=== PATIENT | male | born 1950 | race Caucasian/White ===

== ENCOUNTER 2023-05-19 10:37 | Outpatient (OUT) | payer MEDICARE, SELFPAY ==
[2023-05-19 11:01] LABS: Basophils Absolute Auto 0.1 10^3/uL (0.0-0.1); Basophils Percent Auto 1.1 % (0.2-2.0); Eosinophils Absolute Auto 0.3 10^3/uL (0.0-0.7); Hematocrit 41.3 % (42.0-54.0); Hemoglobin 14.1 g/dL (14.0-18.0); Immature Granulocytes Abs Auto 0.04 10^3/uL (0.00-0.03); Immature Granulocytes Pct Auto 0.4 % (0.0-0.5); Lymphocytes Absolute Auto 1.8 10^3/uL (1.2-3.8); Lymphocytes Percent Auto 19.7 % (20.5-60.0); Mean Corpuscular HGB Conc 34.1 g/dL (29.9-35.2); Mean Corpuscular Hemoglobin 31.7 pg (25.9-34.0); Mean Corpuscular Volume 92.8 fL (80.0-94.0); Mean Platelet Volume 9.7 fL (9.5-13.5); Monocytes Absolute Auto 0.8 10^3/uL (0.3-0.8); Neutrophils Percent Auto 66.8 % (43.0-75.0); Platelet Count 232 10^3/uL (150-450); Red Blood Count 4.45 10^6/uL (4.70-6.10); Red Cell Distribution Width 12.3 % (11.0-15.0)
[2023-05-19 11:23] LABS: Estimated Average Glucose 134 mg/dL; Glycohemoglobin A1C 6.3 % (4.5-6.2)
[2023-05-19 11:27] LABS: Creatinine Urine Random 112.61 mg/dL (20.00-300.00); Microalbum Creatinine Ratio Ur 11.5 mg/g (0.0-29.9); Microalbumin Urine Random <1.3 mg/dL (<=30.0)
[2023-05-19 11:27] LABS: Alanine Aminotransferase 25 U/L (16-63); Albumin Level 3.8 g/dL (3.4-5.0); Alkaline Phosphatase 76 U/L (46-116); Anion Gap 17.1; Aspartate Amino Transferase 19 U/L (15-37); BUN Creatinine Ratio 15.1; Bilirubin Total 0.6 mg/dL (0.2-1.0); Calcium 8.7 mg/dL (8.5-10.1); Carbon Dioxide 23.1 mmol/L (21.0-32.0); Chloride 101 mmol/L (98-107); Cholesterol 138 mg/dL (<=200); Estimated GFR (African America >60 (>=60); Estimated GFR (Non-African Ame >60 (>=60); Globulin 3.8 g/dL; Glucose 133 mg/dL (74-106); HDL Cholesterol 46 mg/dL (40-60); LDL Cholesterol Calculated 62.4 mg/dL; Potassium 4.2 mmol/L (3.5-5.1); Sodium 137 mmol/L (136-145); Total Protein 7.6 g/dL (6.4-8.2); Triglycerides 148 mg/dL (<=150); VLDL CHOLESTEROL 29.6 mg/dL
[2023-05-19 11:38] LABS: Prostate Specific Antigen Scrn 1.01 ng/mL (<=4.00)
== END 2023-05-19 10:38 | disposition home or self-care (01) ==
LOC: LAB 10:37
PROVIDERS: PCP Family Medicine; Visit Provider Family Medicine
DX: E11.9 Type 2 diabetes mellitus without complications (principal); Z12.5 Encounter for screening for malignant neoplasm of prostate
CPT/HCPCS: 36415; 80053; 80061; 82043; 82570; 83036; 85025; G0103

== ENCOUNTER 2024-05-13 09:05 | Outpatient (OUT) | payer MEDICARE, SELFPAY ==
[2024-05-13 09:33] LABS: Basophils Absolute Auto 0.1 10^3/uL (0.0-0.1); Basophils Percent Auto 0.8 % (0.2-2.0); Eosinophils Absolute Auto 0.2 10^3/uL (0.0-0.7); Eosinophils Percent Auto 2.7 % (0.9-7.0); Hematocrit 41.5 % (42.0-54.0); Hemoglobin 14.3 g/dL (14.0-18.0); Immature Granulocytes Abs Auto 0.04 10^3/uL (0.00-0.03); Immature Granulocytes Pct Auto 0.5 % (0.0-0.5); Lymphocytes Absolute Auto 1.5 10^3/uL (1.2-3.8); Lymphocytes Percent Auto 17.5 % (20.5-60.0); Mean Corpuscular HGB Conc 34.5 g/dL (29.9-35.2); Mean Corpuscular Hemoglobin 31.8 pg (25.9-34.0); Mean Corpuscular Volume 92.4 fL (80.0-94.0); Mean Platelet Volume 9.1 fL (9.5-13.5); Monocytes Absolute Auto 0.8 10^3/uL (0.3-0.8); Monocytes Percent Auto 9.5 % (1.7-12.0); Platelet Count 240 10^3/uL (150-450); Red Blood Count 4.49 10^6/uL (4.70-6.10); Red Cell Distribution Width 12.1 % (11.0-15.0); White Blood Count 8.7 10^3/uL (4.0-11.0)
[2024-05-13 10:26] LABS: Alanine Aminotransferase 31 U/L (16-63); Albumin Globulin Ratio 1.1; Albumin Level 3.8 g/dL (3.4-5.0); Alkaline Phosphatase 71 U/L (46-116); Anion Gap 15.4; Aspartate Amino Transferase 17 U/L (15-37); Bilirubin Total 0.6 mg/dL (0.2-1.0); Calcium 8.6 mg/dL (8.5-10.1); Carbon Dioxide 26.9 mmol/L (21.0-32.0); Chloride 102 mmol/L (98-107); Chol HDL Ratio 3.2; Cholesterol 142 mg/dL (<=200); Estimated GFR (African America >60 (>=60 mL/min/1.73m^2); Estimated GFR (Non-African Ame 55 (>=60 mL/min/1.73m^2); Globulin 3.5 g/dL; Glucose 142 mg/dL (74-106); HDL Cholesterol 45 mg/dL (40-60); LDL Cholesterol Calculated 68.2 mg/dL; Potassium 4.3 mmol/L (3.5-5.1); Sodium 140 mmol/L (136-145); Total Protein 7.3 g/dL (6.4-8.2); Triglycerides 144 mg/dL (<=150); VLDL CHOLESTEROL 28.8 mg/dL
[2024-05-13 10:27] LABS: Creatinine Urine Random 75.28 mg/dL (20.00-300.00); Microalbumin Urine Random <1.3 mg/dL (<=30.0)
[2024-05-13 10:39] LABS: Prostate Specific Antigen Scrn 0.89 ng/mL (<=4.00)
[2024-05-13 11:12] LABS: Estimated Average Glucose 143 mg/dL; Glycohemoglobin A1C 6.6 % (4.5-6.2)
== END 2024-05-13 09:06 | disposition home or self-care (01) ==
LOC: LAB 09:06
PROVIDERS: PCP Family Medicine; Visit Provider Family Medicine
DX: E78.2 Mixed hyperlipidemia (principal); I10 Essential (primary) hypertension; E11.9 Type 2 diabetes mellitus without complications
CPT/HCPCS: 36415; 80053; 80061; 82043; 82570; 83036; 85025; G0103

== ENCOUNTER 2024-05-14 07:22 | Outpatient (OUT) | payer MEDICARE, SELFPAY ==
--- OUTSIDE RECORDS SUMMARY | 2024-05-14 07:26 | XMS_ITS | CCD ---
Author Organization [facility] Care Team Providers Care Instructor Apparel Manufacture Name Role Phone DR CHARAN VALDEZ Admitting Unavailable VALDEZ, DR CHARAN Kaur Attending Unavailable COURTNEY, DR CHARAN Kaur Primary Care Unavailable VALDEZ, DR CHARAN Kaur Consulting Unavailable Unavailable Primary Care Provider MOMO Vaz Attending Unavailable ED LEVY Referring Unavailable Medications Current Medications Medication Drug Class(es) Dates Sig (Normalized) Sig (Original) atorvastatin 10 mg oral tablet (1 source) HMG-CoA Reductase Inhibitor atorvastatin (Lipitor) 10 MG tablet TAKE 1 TABLET BY MOUTH EVERY DAY ONCE DAILY Active ketorolac tromethamine 5 mg/ml ophthalmic solution (1 source) Nonsteroidal Anti-inflammatory Drug, Cyclooxygenase Inhibitor Start: 04-17-2024 End: 05-17-2024 take 1 drop(s) into the eye(s) in the morning ketorolac (Acular) 0.5 % ophthalmic solution Indications: Age-related nuclear cataract of both eyes Administer 1 drop into affected eye(s) in the morning and 1 drop before bedtime. 5 mL 1 04/17/2024 05/17/2024 Active metFORMIN hydrochloride 1000 mg oral tablet (1 source) Biguanide take 1 tablet by mouth in the morning metFORMIN (Glucophage) 1000 MG tablet Take 1,000 mg by mouth in the morning and 1,000 mg in the evening. Take with meals. Active ofloxacin 3 mg/ml ophthalmic solution (1 source) Quinolone Antimicrobial Start: 04-17-2024 End: 04-18-2024 take 1 drop(s) into the eye(s) five times daily ofloxacin (Ocuflox) 0.3 % ophthalmic solution Indications: Age-related nuclear cataract of both eyes Administer 1 drop into the right eye 5 (five) times a day for 1 day Starting 1 day before surgery, continue after surgery as directed 5 mL 1 04/17/2024 04/18/2024 Active prednisoLONE acetate 10 mg/ml ophthalmic suspension (1 source) Corticosteroid Start: 04-17-2024 End: 05-01-2024 prednisoLONE acetate (Pred-Forte) 1 % ophthalmic suspension Indications: Age-related nuclear cataract of both eyes Administer 1 drop into both eyes in the morning and 1 drop at noon and 1 drop in the evening and 1 drop before bedtime. Do all this for 14 days. 5 mL 1 04/17/2024 05/01/2024 Active tamsulosin hydrochloride 0.4 mg oral capsule (1 source) alpha-Adrenergic Zeo Start: 02-13-2024 take 1 capsule by mouth once daily tamsulosin (Flomax) 0.4 MG 24 hr capsule Take 0.4 mg by mouth Daily 02/13/2024 Active Problems Problem Classification Problem Date Documented Da te Episodic/Chronic Cataract (2 sources) Bilateral age-related nuclear cataracts; Translations: [Age-related nuclear cataract, bilateral] Onset: 04-17-2024 04-17-2024 Chronic Diabetes mellitus without complication (1 source) Type 2 diabetes mellitus without complications; Translations: [TYPE 2 DM WITHOUT COMPLICATIONS] Onset: 05-21-2022 Chronic Disorders of lipid metabolism (4 sources) Mixed hyperlipidemia; Translations: [MIXED HYPERLIPIDEMIA] Onset: 05-16-2022 Chronic Essential hypertension (1 source) Essential (primary) hypertension; Translations: [ESSENTIAL PRIMARY HYPERTENSION] Onset: 05-21-2022 Chronic Other screening for suspected conditions (not mental disorders or infectious disease) (1 source) Encounter for screening for malignant neoplasm of prostate; Translations: [ENC SCREEN MALIG NEOPLASM PROSTATE] Onset: 05-21-2022 Episodic Results Test Name Value Interpretation Reference Range Facil ity US Eye+Orbit - bilateralon 1 06-17-2023 Diagnosis: Cataract both eyes (OU) Testing Indication: Performed for preop measurements in the determination of an intraocular lens (IOL) for both eyes (OU) Test Reliability: Good quality both eyes (OU) Interpretation: Good measurements for intraocular lens (IOL) calculation purposes. Calculation made for both eyes (OU). [facility] Drivrcar e Radiology Study observation (narrative) [facility] CBC AUTO DIFFon 05-16-2022 BASO # 0.1 103/ul Normal 0.0-0.1 [facility] Comment on above: Performed By: #### C BC #### [facility] [address] [place] [address] Dr. Arnaldo Dejesus Basophils/100 WBC (Bld) 0.9 % Normal 0.2-2.0 [facility] Comment on above: Performed By: #### C BC #### [facility] [address] [place] [address] Dr. Arnaldo Dejesus EO # 0.2 103/ul Normal 0.0-0.7 [facility] Comment on above: Performed By: #### C BC #### [facility] [address] [place] [address] Dr. Arnaldo Dejesus Eosinophils/100 WBC (Bld) 2.4 % Normal 0.9-7.0 [facility] Comment on above: Performed By: #### C BC #### [facility] [address] [place] [address] Dr. Arnaldo Dejesus Erythrocyte distribution width (RBC) [Ratio] 12.5 % Normal 11.0-15.0 [facility] Comment on above: Performed By: #### C BC #### [facility] [address] [place] [address] Dr. Arnaldo Dejesus Hematocrit (Bld) [Volume fraction] 40.9 % Critically low 42.0-54.0 [facility] Comment on above: Performed By: #### C BC #### [facility] [address] [place] [address] Dr. Arnaldo Dejesus Hemoglobin (Bld) [Mass/Vol] 14.4 g/dL Normal 14.0-18.0 [facility] Comment on above: Performed By: #### C BC #### [facility] [address] [place] [address] Dr. Arnaldo Dejesus IG # 0.05 10e3/ul Critically high 0.00-0.03 [facility] Comment on above: Performed By: #### C BC #### [facility] [address] [place] [address] Dr. Arnaldo Dejesus IG % 0.5 % Normal 0.0-0.5 [facility] Comment on above: Performed By: #### C BC #### [facility] [address] [place] [address] Dr. Arnaldo Dejesus LYMPH # 2.0 103/ul Normal 1.2-3.8 [facility] Comment on above: Performed By: #### C BC #### [facility] [address] [place] [address] Dr. Arnaldo Dejesus Lymphocytes/100 WBC (Bld) 21.8 % Normal 20.5-60.0 [facility] Comment on above: Performed By: #### C BC #### [facility] [address] [place] [address] Dr. Arnaldo Dejesus MANUAL DIFF REQ NO Normal [facility] Comment on above: Performed By: #### C BC #### [facility] [address] [place] [address] Dr. Arnaldo Dejesus MCH (RBC) [Entitic mass] 31.3 pg Normal 25.9-34.0 [facility] Comment on above: Performed By: #### C BC #### [facility] [address] [place] [address] Dr. Arnaldo Dejesus MCHC (RBC) [Mass/Vol] 35.2 g/dL Normal 29.9-35.2 [facility] Comment on above: Performed By: #### C BC #### [facility] [address] [place] [address] Dr. Arnaldo Dejesus MCV (RBC) [Entitic vol] 88.9 fL Normal 80.0-94.0 [facility] Comment on above: Performed By: #### C BC #### [facility] [address] [place] [address] Dr. Arnaldo Dejesus MONO # 0.8 103/ul Normal 0.3-0.8 [facility] Comment on above: Performed By: #### C BC #### [facility] [address] [place] [address] Dr. Arnaldo Dejesus Monocytes/100 WBC (Bld) 8.4 % Normal 1.7-12.0 [facility] Comment on above: Performed By: #### C BC #### [facility] [address] [address] [address] Arnaldo Dejesus NEUT # 6.2 103/ul Normal 1.4-6.5 [facility] Comment on above: Performed By: #### C BC #### [facility] [address] [address] [address] Arnaldo Dejesus Neutrophils/100 WBC (Bld) 66.0 % Normal 43.0-75.0 [facility] Comment on above: Performed By: #### C BC #### [facility] [address] [address] [address] Arnaldo Dejesus Platelet mean volume (Bld) [Entitic vol] 9.2 fL Critically low 9.5-13.5 [facility] Comment on above: Performed By: #### C BC #### [facility] [address] [address] [address] Arnaldo Dejesus PLT 256 103/ul Normal 150-450 [facility] Comment on above: Performed By: #### C BC #### [facility] [address] [place] [address] Dr. Arnaldo Dejesus RBC 4.60 106/ul Critically low 4.70-6.10 [facility] Comment on above: Performed By: #### C BC #### [facility] [address] [place] [address] Dr. Arnaldo Dejesus WBC 9.3 103/ul Normal 4.0-11.0 [facility] Comment on above: Performed By: #### C BC #### [facility] [address] [place] [address] Dr. Arnaldo Dejesus LIPID PROFILEon 05-16-2022 CHOL-HDL RATIO NORM SEE BELOW Normal [facility] Comment on above: Result Comment: 3.3 - 4.4 LOW RISK 4.4 - 7.1 AVERAGE RISK 7.1 - 11.0 MODERATE RISK >11.0 HIGH RISK Performed By: #### C MP, LIPID #### [facility] [address] [place] [address] Dr. Arnaldo Dejesus Cholesterol [Mass/Vol] 125 mg/dL Normal <=200 [facility] Comment on above: Performed By: #### C MP, LIPID #### [facility] [address] [address] [address] Arnaldo Dejesus Cholesterol in HDL [Mass/Vol] 41 mg/dL Normal 40-60 [facility] Comment on above: Performed By: #### C MP, LIPID #### [facility] [address] [address] [address] Arnaldo Dejesus Cholesterol in LDL [Mass/Vol] 50.4 mg/dL Normal [facility] Comment on above: Performed By: #### C MP, LIPID #### [facility] [address] [address] [address] Arnaldo Dejesus Cholesterol.total/ Cholesterol in HDL [Mass ratio] 3.0 {ratio} Normal [facility] Comment on above: Performed By: #### C MP, LIPID #### [facility] [address] [place] [address] Dr. Arnaldo Dejesus HDL NORMAL > or = 60 mg/dl - LOW CARDIOVASCULAR RISK <40 mg/dl - HIGH CARDIOVASCULAR RISK Normal [facility] Comment on above: Performed By: #### C MP, LIPID #### [facility] [address] [place] [address] Dr. Arnaldo Dejesus LDL CALC NORMAL SEE BELOW Normal [facility] Comment on above: Result Comment: <100 mg/dl OPTIMAL 100 - 129 mg/dl NEAR OR ABOVE OPTIMAL 130 - 159 mg/dl BORDERLINE HIGH 160 - 189 mg/dl HIGH >190 mg/dl VERY HIGH Performed By: #### C MP, LIPID #### [facility] [address] [address] [address] Arnaldo Dejesus Triglyceride [Mass/Vol] 168 mg/dL Critically high <=150 [facility] Comment on above: Performed By: #### C MP, LIPID #### [facility] [address] [place] [address] Dr. Arnaldo Dejesus VLDL CALC 33.6 mg/dL Normal [facility] Comment on above: Performed By: #### C MP, LIPID #### [facility] [address] [address] [address] Arnaldo Dejesus PROF 14(COMP METB)on 022 Albumin [Mass/Vol] 4.1 g/dL Normal 3.4-5.0 [facility] Comment on above: Performed By: #### C MP, LIPID #### [facility] [address] [place] [address] Dr. Arnaldo Dejesus Albumin/Globulin [Mass ratio] 1.1 {ratio} Normal [facility] Comment on above: Performed By: #### C MP, LIPID #### [facility] [address] [place] [address] Dr. Arnaldo Dejesus ALP [Catalytic activity/Vol] 84 U/L Normal 46-116 [facility] Comment on above: Performed By: #### C MP, LIPID #### [facility] [address] [place] [address] Dr. Arnaldo Dejesus ALT [Catalytic activity/Vol] 30 U/L Normal 16-63 [facility] Comment on above: Performed By: #### C MP, LIPID #### [facility] [address] [place] [address] Dr. Arnaldo Dejesus Anion gap [Moles/Vol] 12.1 mmol/L Normal [facility] Comment on above: Performed By: #### C MP, LIPID #### [facility] [address] [place] [address] Dr. Arnaldo Dejesus AST [Catalytic activity/Vol] 20 U/L Normal 15-37 [facility] Comment on above: Performed By: #### C MP, LIPID #### [facility] [address] [place] [address] Dr. Arnaldo Dejesus Bilirubin [Mass/Vol] 0.7 mg/dL Normal 0.2-1.0 [facility] Comment on above: Performed By: #### C MP, LIPID #### [facility] [address] [place] [address] Dr. Arnaldo Dejesus Calcium [Mass/Vol] 8.8 mg/dL Normal 8.5-10.1 [facility] Comment on above: Performed By: #### C MP, LIPID #### [facility] [address] [place] [address] Dr. Arnaldo Dejesus Chloride [Moles/Vol] 100 mmol/L Normal 98-107 [facility] Comment on above: Performed By: #### C MP, LIPID #### [facility] [address] [place] [address] Dr. Arnaldo Dejesus CO2 [Moles/Vol] 28.7 mmol/L Normal 21.0-32.0 [facility] Comment on above: Performed By: #### C MP, LIPID #### [facility] [address] [address] [address] Arnaldo Dejesus Creatinine [Mass/Vol] 1.13 mg/dL Normal 0.70-1.30 [facility] Comment on above: Performed By: #### C MP, LIPID #### [facility] [address] [place] [address] Dr. Arnaldo Dejesus EGFR-AF MALTESE >60 Normal >=60 [facility] Comment on above: Performed By: #### C MP, LIPID #### [facility] [address] [place] [address] Dr. Arnaldo Dejesus EGFR-NON AF MALTESE >60 Normal >=60 [facility] Comment on above: Performed By: #### C MP, LIPID #### [facility] [address] [place] [address] Dr. Arnaldo Dejesus Globulin (S) [Mass/Vol] 3.6 g/dL Normal [facility] Comment on above: Performed By: #### C MP, LIPID #### [facility] [address] [place] [address] Dr. Arnaldo Dejesus Glucose [Mass/Vol] 123 mg/dL Critically high 74-106 [facility] Comment on above: Performed By: #### C MP, LIPID #### [facility] [address] [place] [address] Dr. Arnaldo Dejesus Potassium [Moles/Vol] 3.8 mmol/L Normal 3.5-5.1 [facility] Comment on above: Performed By: #### C MP, LIPID #### [facility] [address] [place] [address] Dr. Arnaldo Dejesus Protein [Mass/Vol] 7.7 g/dL Normal 6.4-8.2 [facility] Comment on above: Performed By: #### C MP, LIPID #### [facility] [address] [address] [address] Arnaldo Dejesus Sodium [Moles/Vol] 137 mmol/L Normal 136-145 [facility] Comment on above: Performed By: #### C MP, LIPID #### [facility] [address] [address] [address] Arnaldo Dejesus Urea nitrogen [Mass/Vol] 17.0 mg/dL Normal 7.0-18.0 [facility] Comment on above: Performed By: #### C MP, LIPID #### [facility] [address] [address] [address] Arnaldo Dejesus Urea nitrogen/Creatinin e [Mass ratio] 15.0 mg/mg Normal [facility] Comment on above: Performed By: #### C MP, LIPID #### [facility] [address] [address] [address] Arnaldo Dejesus Encounters Encounter Date Encounter Type Care Provider Facility Start: 04-17-2024 End: 04-17-2024 Bamboo flowsheet Momo Sellers DO Work Phone: [facility] Start: 04-17-2024 End: 04-17-2024 Bamboo flowsheet Momo Sellers DO Work Phone: [facility] Start: 04-17-2024 End: 04-17-2024 ambulatory MOMO SELLERS Not Available Start: 05-16-2022 End: 05-17-[address] CHARAN VALDEZ Facility:[facility] Procedures Date Procedure Procedure Detail Performing Clinician Start: 04-17-2024 Oph bmtry prtl coher intrfrmtry io lens pwr siva Momo Sellers DO Work Phone: Start: 04-17-2024 End: 04-17-2024 Ophth medical xm&eval compre new pt 1/> vst Age-related nuclear cataract of both eyes Momo Sellers DO Work Phone: Comment on above: Age-related nuclear cataract of both eyes (Primary Dx) Start: 05-16-[address] CHARAN VALDEZ Comment on above: Performed By: #### P [facility] #### [facility] [address] [place] [address] Dr. Arnaldo Dejesus Plan of Treatment Date Care Activity Detail Author Start: 04-17-2024 End: 04-17-2024 Patient encounter procedure 04/17/2024 2:00 PM EST Office Visit [facility] [address] [place] [address] Momo Sellers DO [address] [place] [address] Arrived [facility] Comment on above: Arrived Start: 02-11-2024 Influenza vaccination Influenza Vacc ine (#1) [facility] Start: 1950 Screening for malign ant neoplasm of colon [facility] Immunizations Immunization Date Immunization Notes Care Provider Fa cility 05-13-2019 influenza virus vacc ine, unspecified formulation Momo Sellers DO Work Phone: [facility] Healthcare Payers Date Payer Category Payer Private Health Insurance PILAR aceves [id number] 2024 Private Health Insurance CLI [id number] 2016 Medicare MEDICARE [id number] 1959 Medicare [id number] 1958 Unknown [id number] 1950 Unknown [id number] 1950 Unknown [id number] Social History Date Type Detail Facility Tobacco smoking stat [facility] Tobacco smoking consumption unknown [facility] Start: 1950 Sex assigned at Not on file [facility] Start: 04-17-2024 Gender identity Not on file [facility] Start: 04-17-2024 Tobacco smoking stat [facility] Ex-smoker [facility] History of tobacco use Current smoker [facility] History of tobacco use Cigarette Smoker [facility] Start: 04-17-2024 History of Social function [facility] History of Present illness Narrative 04-17-2024 Momo Sellers, - 04/17/2024 2:00 PM EST Note Date & Type Note Facility 04-17-2024 History of Presen t illness Narrative Images from the original note were not included. Subjective Patient ID: Terence Ragsdale is a 73 y.o. male. Chief Complaint Cataract HPI Cataract In both eyes. Associated symptoms include blurred vision. Frequency is constant. Context: distance vision, mid-range vision, near vision, reading, watching TV, computer work and driving. Since onset it is gradually worsening. Affected activities include reading, working on the computer, driving, watching TV and daily activities. Treatments tried include glasses. Response to treatment was mild improvement. Comments Cataract extraction (CE) eval for pt referred by Dr Levy. Pt states vision is extremely blurry without glasses (missing). Diabetes mellitus (DM) II, pt states sugar levels have been slightly elevated recently. Last A1c around 7. Not using any drops. No pm or defib No latex allergy No flomax Last edited by NASREEN CLARK on 04/17/2024 2:23 PM. Current Outpatient Medications (Ophthalmic Agents) Medication Sig Dispense Refill ketorolac (Acular) 0.5 % ophthalmic solution Administer 1 drop into affected eye(s) in the morning and 1 drop before bedtime. 5 mL 1 ofloxacin (Ocuflox) 0.3 % ophthalmic solution Administer 1 drop into the right eye 5 (five) times a day for 1 day Starting 1 day before surgery, continue after surgery as directed 5 mL 1 prednisoLONE acetate (Pred-Forte) 1 % ophthalmic suspension Administer 1 drop into both eyes in the morning and 1 drop at noon and 1 drop in the evening and 1 drop before bedtime. Do all this for 14 days. 5 mL 1 No current facility-administered medications for this visit. (Ophthalmic Agents) Current Outpatient Medications (Other) Medication Sig Dispense Refill tamsulosin (Flomax) 0.4 MG 24 hr capsule Take 0.4 mg by mouth Daily atorvastatin (Lipitor) 10 MG tablet TAKE 1 TABLET BY MOUTH EVERY DAY ONCE DAILY metFORMIN (Glucophage) 1000 MG tablet Take 1,000 mg by mouth in the morning and 1,000 mg in the evening. Take with meals. No current facility-administered medications for this visit. (Other) Past Medical History: Diagnosis Date Cataract Diabetes mellitus (CMS/HCC) Dry eyes No Known Allergies Review of Systems Constitutional: Negative. HENT: Negative. Eyes: Negative. Respiratory: Negative. Cardiovascular: Negative. Gastrointestinal: Negative. Genitourinary: Negative. Musculoskeletal: Negative. Skin: Negative. Neurological: Negative. Psychiatric/Behavioral: Negative. Hematological: Negative. Endocrine: Negative. Allergic/Immunologic: Negative. Objective Base Eye Exam Visual Acuity (Snellen - Linear) Right Left Dist sc 20/40 20/200 Tonometry (Applanation, 2:38 PM) Right Left Pressure 16 16 Pupils Pupils Right PERRL Left PERRL Visual Motley Left Right Full Full Extraocular Movement Right Left Full Full Neuro/Psych Oriented x3: Yes Dilation Both eyes: 1.0% Mydriacyl @ 2:24 PM Additional Tests Keratometry K1 [place] K2 [place] Right 43.25 89 44.25 179 Left 44 15 45 105 Glare Testing High Right 20/100 Left 20/200 Slit Lamp and Fundus Exam External Exam Right Left External Rosacea Rosacea Slit Lamp Exam Right Left Lids/Lashes Blepharitis, Dermatochalasis - upper lid Blepharitis, Dermatochalasis - upper lid Conjunctiva/Sclera White and quiet White and quiet Cornea Decreased tear film Decreased tear film Anterior Chamber Deep and quiet Deep and quiet Iris Round and reactive Round and reactive Lens 2+ Nuclear sclerosis, 3+ Cortical cataract, Vacuoles 3+ Nuclear sclerosis, 2+ Cortical cataract, Vacuoles Anterior Vitreous Normal Normal Fundus Exam Right Left Disc Normal Normal Macula Normal Normal Vessels Normal Normal Periphery Normal Normal Refraction Manifest Refraction Sphere Cylinder [place] Right +1.25 -1.00 097 Left -0.75 -1.50 045 Final Rx Sphere Cylinder [place] Dist VA Right +0.75 -1.00 098 20/40 Left -0.75 -1.50 045 20/80 Expiration Date: 04/17/2025 Assessment/Plan Age-related nuclear cataract of both eyes - Visually Significant Cataract, OU: I discussed the risks, benefits, alternatives, and expectations of cataract surgery. A complete ophthalmic exam was performed and it was determined that the cataracts were a primary source of vision decline, affecting activities of daily living, necessitating removal. Limited vision post-surgery may occur with pre-existing conditions affecting other areas of the eye or the brain was explained and the patient displayed an understanding. The overall objective is to improve ADLs, not eliminate glasses or restore vision to 20/20. Tests were reviewed - the different lens options were explained including the [id number] fees for any upgrades. Intraocular lens (IOL) selection may be altered either prior to or during the procedure based on the doctor's discretion including reverting to a traditional intraocular lens (IOL). They understood that there will exist the potential of glasses prescription need post surgery for near, distance or possibly both. The patient stated a full understanding and a desire to proceed with the procedure. The patient received cataract measurements and had any additional questions answered. - A complete exam was performed including a physical exam: General: AAOx3 and NAD, Lungs: Clear, Heart: RRR, Abdomen: S/NT/ND, Extremities: no pitting edema. - Coordination of care will be shared with Dr. Levy. Cataract Surgery for OS will take place - 05/16 and OD - 05/27. documented in this encounter [facility] Evaluation note Note Date & Type Note Facility Evaluation note Diagnosis Age-related nuclear cataract of both eyes- Primary documented in this encounter [facility] Summary Purpose Family History No Family History Records FoundNo Family History Records Found Advance Directives No Advanced Directives Records FoundNo Advanced Directives Records Found Additional Source Comments (unrecognized sect ion and content) No Status Records FoundNo Status Records Found INFORMATION SOURCE (unrecogn ized section and content) DATE CREATED AUTHOR 05/21/2022 [facility] DATE CREATED AUTHOR AUTHOR'S ORGANIZ ATION 04/19/2024 [facility] EPIC Reason for Visit (unrecogniz ed section and content) Reason Comments Cataract FOR RECORDS PERTAINING TO PATIENTS WHO ARE OR HAVE BEEN ENROLLED IN A CHEMICAL DEPENDENCY/SUBSTANCEABUSE PROGRAM, SOME INFORMATION MAY BE OMITTED. This clinical summary was aggregated from multiple sources. Caution should be exercised in using it in the provision of clinical care. This summary normalizes information from multiple sources, and as a consequence, information in this document may materially change the coding, format and clinical context of patient data. In addition, data may be omitted in some cases. CLINICAL DECISIONS SHOULD BE BASED ON THE PRIMARY CLINICAL RECORDS. [facility]. provides no warranty or guarantee of the accuracy or completeness of information in this document.
== END 2024-05-14 07:23 | disposition home or self-care (01) ==
LOC: PST 07:22
PROVIDERS: PCP Family Medicine; Visit Provider Ophthalmology
DX: Z01.818 Encounter for other preprocedural examination (principal); H25.812 Combined forms of age-related cataract, left eye

== ENCOUNTER 2024-05-16 08:47 | Day surgery (SDC) | payer MEDICARE, SELFPAY ==
--- NOTE | 2024-05-16 | HP_ITS ---
PREOPERATIVE HISTORY AND PHYSICAL ? Date:? 05/15/2024 ? HISTORY:? The patient is a 73-year-old white male with complaints of declining vision from his left eye.? He believes that the onset of this has been gradual, occurring over the last 1-2 years.? This has affected his reading, near vision and computer vision.? It also affected his distance such as TV watching, as well as road signs.? Night time driving has created glare and halos. ? PAST OCULAR HISTORY:? Dry eyes. ? PAST MEDICAL HISTORY:? Diabetes. ? SOCIAL HISTORY:? Denies tobacco, alcohol or recreational drug abuse. ? SYSTEMIC MEDICATIONS:? Include metformin and atorvastatin and tamsulosin. ? ALLERGIES TO MEDICATIONS:? Denies. ? REVIEW OF SYSTEMS:? No pertinent positives. ? PHYSICAL EXAM: ? GENERAL:? In general, he is awake, alert and oriented x3, well developed, well nourished, in no acute distress.? ? HEART:? Regular rate and rhythm. ? LUNGS:? Clear bilaterally. ? ABDOMEN:? Soft, non-tender, non-distended. ? EXTREMITIES:? No pitting edema. ? OPHTHALMIC EXAM:? Revealed a visual acuity of 20/40 in the right and 20/200 in the left that glared to 20/100 in the right.? Pupils motility, muscle balance and confrontational visual cowart within normal limits bilaterally.? Pressures are measured at 16 bilaterally.? Slit lamp exam revealed blepharitis with a severe decrease in tear film bilaterally.? Conjunctiva, cornea, anterior chamber and iris were within normal limits bilaterally.? Lens status demonstrated 2+ nuclear sclerosis, 3+ cortical changes bilaterally.? ? FUNDUS EXAM:? Revealed good view with good dilation bilaterally.? Optic discs, macula, vessels, periphery and vitreous were within normal limits bilaterally.? ? ASSESSMENT AND PLAN:? Visually significant cataract, left eye.? After the risks, benefits, alternatives as well as expectations were delivered to the patient, he elected to go forward with cataract removal.? He understands the risks to include but not limited to infection, bleeding, loss of vision or loss of the eye itself.? Secondly, he understands that postoperatively he is likely to require spectacle correction for his best visual acuity.? Finally, a complete ophthalmic exam was performed and there was not determined to be any other source of vision decline other than that of cataract.? ? After understanding all risks as well as expectations, he elected to go forward with the cataract removal and will be doing so in the near future. ALFA
--- NOTE | 2024-05-16 | OP_ITS ---
OPERATION DATE: 05/16/2024 SURGEON: Clarence Shaw D.O. PREOPERATIVE DIAGNOSIS: Nuclear sclerotic cataract left eye POSTOPERATIVE DIAGNOSIS: Nuclear sclerotic cataract left eye. PROCEDURE NAME: Cataract extraction with intraocular lens placement of the left eye. ANESTHESIA: Topical ESTIMATED BLOOD LOSS: Zero. COMPLICATIONS: None. PROCEDURE: The patient was brought to the Operating Room in supine position. After proper identification, the left eye was prepped and draped in a sterile ophthalmic fashion. A paracentesis was created at the 5 o'clock position. Approximately 1 cc of unpreserved Xylocaine was injected into the anterior chamber followed by Amvisc Plus. Using a 2.6 mm Keratome blade, a clear corneal incision was created at the 2 o'clock limbus. A cystotome was then used to begin a curvilinear capsulorrhexis that was continued for 360 degrees with the Utrata forceps. BSS on a 26 gauge cannula was injected beneath the anterior capsule to hydrodissect as well as hydrodelineate the lens. After ensuring mobility, phacoemulsification was performed in a imiacxt-hmm-ufkmar-type fashion. After all nuclear material had been removed from the eye, IA was introduced and all residual cortical material was cleaned up. Additional Amvisc Plus was injected into the posterior bag and a lens model CCWTT0, 17.0 diopters was injected and dialed into position. After ensuring centration, IA was re- introduced into the anterior chamber and all residual Amvisc Plus was removed from the eye. BSS on a 30 gauge cannula was injected into the stroma of both the clear corneal incision as well as paracentesis to hydrate the wounds. Additional BSS was injected into the anterior chamber to pressurize the eye at approximately 20 to 22 mmHg by finger tension. 0.1 cc of antibiotic was injected into the anterior chamber, and Weck-Jazmín sponges were used to check the wounds to be watertight. One drop of apraclonidine and one drop of prednisolone acetate were placed into the eye and a shield was placed over top. The patient was sent to the postoperative area in satisfactory condition to follow up the following day for postoperative care. ALFA
--- OUTSIDE RECORDS SUMMARY | 2024-05-16 09:10 | XMS_ITS | CCD ---
Author Organization [facility] Care Team Providers Care Metalsmith Name Role Phone DR CHARAN VALDEZ Admitting [...] 0.4 mg oral capsule (1 source) alpha-Adrenergic Zoe Start: 02-13-2024 take 1 capsule by mouth [...] purposes. Calculation made for both eyes (OU). [facility] [employer] Radiology Study observation (narrative) [facility] CBC AUTO DIFFon 05-16-2022 BASO # 0.1 103/ul Normal 0.0-0.1 [facility] Comment on above: Performed By: #### C BC #### [facility] [address] [place] [address] Dr. Arnaldo Dejesus Basophils/100 WBC (Bld) 0.9 % Normal 0.2-2.0 [facility] Comment on above: Performed By: #### C BC #### [facility] [address] [place] [address] Dr. Arnaldo Dejesus EO # 0.2 103/ul Normal 0.0-0.7 [facility] Comment on above: Performed By: #### C BC #### [facility] [address] [place] [address] Dr. Arnaldo Dejesus Eosinophils/100 WBC (Bld) 2.4 % Normal 0.9-7.0 [facility] Comment on above: Performed By: #### C BC #### [facility] [address] [place] [address] Dr. Arnaldo Dejesus Erythrocyte distribution width (RBC) [Ratio] 12.5 % Normal 11.0-15.0 [facility] Comment on above: Performed By: #### C BC #### [facility] [address] [place] [address] Dr. Arnaldo Dejesus Hematocrit (Bld) [Volume fraction] 40.9 % Critically low 42.0-54.0 [facility] Comment on above: Performed By: #### C BC #### [facility] [address] [place] [address] Dr. Arnaldo Dejesus Hemoglobin (Bld) [Mass/Vol] 14.4 g/dL Normal 14.0-18.0 [facility] Comment on above: Performed By: #### C BC #### [facility] [address] [place] [address] Dr. Arnaldo Dejesus IG # 0.05 10e3/ul Critically high 0.00-0.03 [facility] Comment on above: Performed By: #### C BC #### [facility] [address] [place] [address] Dr. Arnaldo Dejesus IG % 0.5 % Normal 0.0-0.5 [facility] Comment on above: Performed By: #### C BC #### [facility] [address] [place] [address] Dr. Arnaldo Dejesus LYMPH # 2.0 103/ul Normal 1.2-3.8 [facility] Comment on above: Performed By: #### C BC #### [facility] [address] [place] [address] Dr. Arnaldo Dejesus Lymphocytes/100 WBC (Bld) 21.8 % Normal 20.5-60.0 [facility] Comment on above: Performed By: #### C BC #### [facility] [address] [place] [address] Dr. Arnaldo Dejesus MANUAL DIFF REQ NO Normal [facility] Comment on above: Performed By: #### C BC #### [facility] [address] [place] [address] Dr. Arnaldo Dejesus MCH (RBC) [Entitic mass] 31.3 pg Normal 25.9-34.0 [facility] Comment on above: Performed By: #### C BC #### [facility] [address] [place] [address] Dr. Arnaldo Dejesus MCHC (RBC) [Mass/Vol] 35.2 g/dL Normal 29.9-35.2 [facility] Comment on above: Performed By: #### C BC #### [facility] [address] [place] [address] Dr. Arnaldo Dejesus MCV (RBC) [Entitic vol] 88.9 fL Normal 80.0-94.0 [facility] Comment on above: Performed By: #### C BC #### [facility] [address] [place] [address] Dr. Arnaldo Dejesus MONO # 0.8 103/ul Normal 0.3-0.8 [facility] Comment on above: Performed By: #### C BC #### [facility] [address] [place] [address] Dr. Arnaldo Dejesus Monocytes/100 WBC (Bld) 8.4 % Normal 1.7-12.0 [facility] Comment on above: Performed By: #### C BC #### [facility] [address] [address] [address] Arnaldo Dejesus NEUT # 6.2 103/ul Normal 1.4-6.5 [facility] Comment on above: Performed By: #### C BC #### [facility] [address] [address] [address] Arnaldo Dejesus Neutrophils/100 WBC (Bld) 66.0 % Normal 43.0-75.0 [facility] Comment on above: Performed By: #### C BC #### [facility] [address] [address] [address] Arnaldo Dejesus Platelet mean volume (Bld) [Entitic vol] 9.2 fL Critically low 9.5-13.5 [facility] Comment on above: Performed By: #### C BC #### [facility] [address] [address] [address] Arnaldo Dejesus PLT 256 103/ul Normal 150-450 [facility] Comment on above: Performed By: #### C BC #### [facility] [address] [place] [address] Dr. Arnaldo Dejesus RBC 4.60 106/ul Critically low 4.70-6.10 [facility] Comment on above: Performed By: #### C BC #### [facility] [address] [place] [address] Dr. Arnaldo Dejesus WBC 9.3 103/ul Normal 4.0-11.0 [facility] Comment on above: Performed By: #### C BC #### [facility] [address] [place] [address] Dr. Arnaldo Dejesus LIPID PROFILEon 05-16-2022 CHOL-HDL RATIO NORM SEE BELOW Normal [facility] Comment on above: Result Comment: 3.3 - 4.4 LOW RISK 4.4 - 7.1 AVERAGE RISK 7.1 - 11.0 MODERATE RISK >11.0 HIGH RISK Performed By: #### C MP, LIPID #### [facility] [address] [place] [address] Dr. Arnaldo Dejesus Cholesterol [Mass/Vol] 125 mg/dL Normal <=200 [facility] Comment on above: Performed By: #### C MP, LIPID #### [facility] [address] [address] [address] Arnaldo Dejesus Cholesterol in HDL [Mass/Vol] 41 mg/dL Normal 40-60 [facility] Comment on above: Performed By: #### C MP, LIPID #### [facility] [address] [address] [address] Arnaldo Dejesus Cholesterol in LDL [Mass/Vol] 50.4 mg/dL Normal [facility] Comment on above: Performed By: #### C MP, LIPID #### [facility] [address] [address] [address] Arnaldo Dejesus Cholesterol.total/ Cholesterol in HDL [Mass ratio] 3.0 {ratio} Normal [facility] Comment on above: Performed By: #### C MP, LIPID #### [facility] [address] [place] [address] Dr. Arnaldo Dejesus HDL NORMAL > or = 60 mg/dl - LOW CARDIOVASCULAR RISK <40 mg/dl - HIGH CARDIOVASCULAR RISK Normal [facility] Comment on above: Performed By: #### C MP, LIPID #### [facility] [address] [place] [address] Dr. Arnaldo Dejesus LDL CALC NORMAL SEE BELOW Normal [facility] Comment on above: Result Comment: <100 mg/dl OPTIMAL 100 - 129 mg/dl NEAR OR ABOVE OPTIMAL 130 - 159 mg/dl BORDERLINE HIGH 160 - 189 mg/dl HIGH >190 mg/dl VERY HIGH Performed By: #### C MP, LIPID #### [facility] [address] [address] [address] Arnaldo Dejesus Triglyceride [Mass/Vol] 168 mg/dL Critically high <=150 [facility] Comment on above: Performed By: #### C MP, LIPID #### [facility] [address] [place] [address] Dr. Arnaldo Dejesus VLDL CALC 33.6 mg/dL Normal [facility] Comment on above: Performed By: #### C MP, LIPID #### [facility] [address] [address] [address] Arnaldo Dejesus PROF 14(COMP METB)on 022 Albumin [Mass/Vol] 4.1 g/dL Normal 3.4-5.0 [facility] Comment on above: Performed By: #### C MP, LIPID #### [facility] [address] [place] [address] Dr. Arnaldo Dejesus Albumin/Globulin [Mass ratio] 1.1 {ratio} Normal [facility] Comment on above: Performed By: #### C MP, LIPID #### [facility] [address] [place] [address] Dr. Arnaldo Dejesus ALP [Catalytic activity/Vol] 84 U/L Normal 46-116 [facility] Comment on above: Performed By: #### C MP, LIPID #### [facility] [address] [place] [address] Dr. Arnaldo Dejesus ALT [Catalytic activity/Vol] 30 U/L Normal 16-63 [facility] Comment on above: Performed By: #### C MP, LIPID #### [facility] [address] [place] [address] Dr. Arnaldo Dejesus Anion gap [Moles/Vol] 12.1 mmol/L Normal [facility] Comment on above: Performed By: #### C MP, LIPID #### [facility] [address] [place] [address] Dr. Arnaldo Dejesus AST [Catalytic activity/Vol] 20 U/L Normal 15-37 [facility] Comment on above: Performed By: #### C MP, LIPID #### [facility] [address] [place] [address] Dr. Arnaldo Dejesus Bilirubin [Mass/Vol] 0.7 mg/dL Normal 0.2-1.0 [facility] Comment on above: Performed By: #### C MP, LIPID #### [facility] [address] [place] [address] Dr. Arnaldo Dejesus Calcium [Mass/Vol] 8.8 mg/dL Normal 8.5-10.1 [facility] Comment on above: Performed By: #### C MP, LIPID #### [facility] [address] [place] [address] Dr. Arnaldo Dejesus Chloride [Moles/Vol] 100 mmol/L Normal 98-107 [facility] Comment on above: Performed By: #### C MP, LIPID #### [facility] [address] [place] [address] Dr. Arnaldo Dejesus CO2 [Moles/Vol] 28.7 mmol/L Normal 21.0-32.0 [facility] Comment on above: Performed By: #### C MP, LIPID #### [facility] [address] [address] [address] Arnaldo Dejesus Creatinine [Mass/Vol] 1.13 mg/dL Normal 0.70-1.30 [facility] Comment on above: Performed By: #### C MP, LIPID #### [facility] [address] [place] [address] Dr. Arnaldo Dejesus EGFR-AF ANGUILLAN >60 Normal >=60 [facility] Comment on above: Performed By: #### C MP, LIPID #### [facility] [address] [place] [address] Dr. Arnaldo Dejesus EGFR-NON AF ANGUILLAN >60 Normal >=60 [facility] Comment on above: Performed By: #### C MP, LIPID #### [facility] [address] [place] [address] Dr. Arnaldo Dejesus Globulin (S) [Mass/Vol] 3.6 g/dL Normal [facility] Comment on above: Performed By: #### C MP, LIPID #### [facility] [address] [place] [address] Dr. Arnaldo Dejesus Glucose [Mass/Vol] 123 mg/dL Critically high 74-106 [facility] Comment on above: Performed By: #### C MP, LIPID #### [facility] [address] [place] [address] Dr. Arnaldo Dejesus Potassium [Moles/Vol] 3.8 mmol/L Normal 3.5-5.1 [facility] Comment on above: Performed By: #### C MP, LIPID #### [facility] [address] [place] [address] Dr. Arnaldo Dejesus Protein [Mass/Vol] 7.7 g/dL Normal 6.4-8.2 [facility] Comment on above: Performed By: #### C MP, LIPID #### [facility] [address] [address] [address] Arnaldo Dejesus Sodium [Moles/Vol] 137 mmol/L Normal 136-145 [facility] Comment on above: Performed By: #### C MP, LIPID #### [facility] [address] [address] [address] Arnaldo Dejesus Urea nitrogen [Mass/Vol] 17.0 mg/dL Normal 7.0-18.0 [facility] Comment on above: Performed By: #### C MP, LIPID #### [facility] [address] [address] [address] Arnaldo Dejesus Urea nitrogen/Creatinin e [Mass ratio] 15.0 mg/mg Normal [facility] Comment on above: Performed By: #### C MP, LIPID #### [facility] [address] [address] [address] Arnaldo Dejesus Encounters Encounter Date Encounter [...] Comment on above: Performed By: #### P [facility] #### [facility] [address] [place] [address] Dr. Arnaldo Dejesus Plan of Treatment Date Care Activity Detail Author Start: 04-17-2024 End: 04-17-2024 Patient encounter procedure 04/17/2024 2:00 PM EST Office Visit [facility] [address] [place] [address] Momo Sellers DO [address] [place] [address] Arrived [facility] Comment on above: Arrived Start: 02-11-2024 Influenza vaccination Influenza Vacc ine (#1) [facility] Start: 1950 Screening for malign ant neoplasm of colon [facility] Immunizations Immunization Date Immunization Notes Care Provider Fa cility 05-13-2019 influenza virus vacc ine, unspecified formulation Momo Sellers DO Work Phone: [facility] Healthcare Payers Date Payer Category Payer Private Health Insurance PILAR aceves [id number] 2024 Private Health Insurance CLI [id number] 2016 Medicare MEDICARE [id number] 1959 Medicare [id number] 1958 Unknown [id number] 1950 Unknown [id number] 1950 Unknown [id number] Social History Date Type Detail Facility Tobacco smoking stat [facility] Tobacco smoking consumption unknown [facility] Start: 1950 Sex assigned at Not on file [facility] Start: 04-17-2024 Gender identity Not on file [facility] Start: 04-17-2024 Tobacco smoking stat [facility] Ex-smoker [facility] History of tobacco use [...] @ 2:24 PM Additional Tests Keratometry K1 Lakin K2 Lakin Right 43.25 89 44.25 179 Left 44 [...] Normal Normal Refraction Manifest Refraction Sphere Cylinder Lakin Right +1.25 -1.00 097 Left -0.75 -1.50 045 Final Rx Sphere Cylinder Lakin Dist [facility] Right +0.75 -1.00 098 20/40 [...] different lens options were explained including the [id number] fees for any upgrades. Intraocular lens (IOL) [...] DATE CREATED AUTHOR AUTHOR'S ORGANIZ ATION 04/19/2024 [facility] EPIC Reason for Visit [...] BE BASED ON THE PRIMARY CLINICAL RECORDS. [facility] [employer] [facility]. provides no warranty or guarantee of the accuracy or completeness of information in this document.
[2024-05-16 09:15] VITALS: BP 181/84; PULSE 81; TEMP 36.2; O2SAT 98; BMI 28.8
[2024-05-16] MEDS: DIAZEPAM 5 MG TABLET 10 MG PO (09:22)
[2024-05-16] MEDS: TROPICAMIDE 1% OP SOL 300 DROP/15 ML BOTTLE OP ×4 (09:23→09:58)
[2024-05-16] MEDS: OFLOXACIN 0.3% OP SOL 100 DROP/5 ML BOTTLE OP ×4 (09:23→09:59)
[2024-05-16] MEDS: PHENYLEPHRINE HCL 2.5% OP SOL 40 DROP/2 ML BOTTLE OP ×4 (09:23→09:58)
[2024-05-16] MEDS: CYCLOPENTOLATE HCL 1% OP SOL 40 DROP/2 ML BOTTLE OP ×4 (09:23→09:59)
[2024-05-16] MEDS: BETADINE POVIDONE-IODINE 5% OP SOL 30 ML BOTTLE OP (11:14)
[2024-05-16] MEDS: PROPARACAINE HCL 0.5% 300 DROP/15 ML BOTTLE OP (11:14)
[2024-05-16] MEDS: LIDOCAINE 2% JELLY 10 ML TOPICAL (11:14)
[2024-05-16 11:22] VITALS: BP 159/88; PULSE 76; O2SAT 98
[2024-05-16 11:25] VITALS: BP 162/92; PULSE 75; O2SAT 98
[2024-05-16] MEDS: APRACLONIDINE HCL 0.5% SOL 100 DROP/5 ML BOTTLE OP (11:25)
[2024-05-16] MEDS: PHENYLEPHRINE/KETOROLAC 1-0.3% ML VIAL 4 ML IRR (11:26)
[2024-05-16] MEDS: LIDOCAINE HCL 1% PF 20 MG/2 ML VIAL INJ (11:26)
[2024-05-16] MEDS: PREDNISOLONE ACETATE OP 1% SUSP 100 DROPS/5 ML 1 DROP OP (11:26)
[2024-05-16] MEDS: HYALURONATE SODIUM 16 MG/ML SYRINGE OP (11:26)
[2024-05-16] MEDS: TETRACAINE HCL 0.5% OP SOL 80 DROP/4 ML BOTTLE OP (11:27)
[2024-05-16] MEDS: CEFUROXIME SODIUM 750 MG, 0.9 % SODIUM CHLORIDE 16.3 ML OP (11:28)
== END 2024-05-16 11:48 | disposition home or self-care (01) ==
LOC: SURGOUT 08:48
PROVIDERS: PCP Family Medicine; Visit Provider Ophthalmology
PROC: (CPT 66984; principal; 2024-05-16 10:10)
DX: H25.12 Age-related nuclear cataract, left eye (principal); E11.9 Type 2 diabetes mellitus without complications; Z79.84 Long term (current) use of oral hypoglycemic drugs
CPT/HCPCS: 66984; J0697; V2630

== ENCOUNTER 2025-05-20 12:17 | Outpatient (OUT) | payer MEDICARE, SELFPAY ==
--- OUTSIDE RECORDS SUMMARY | 2025-05-20 12:39 | XMS_ITS | CCD ---
Author Organization [facility] Care Team Providers Care Backwinder Name Role Phone DR CHARAN VALDEZ Admitting Unavailable VALDEZ, DR CHARAN Kaur Attending Unavailable COURTNEY, DR CHARAN Kaur Primary Care Unavailable VALDEZ, DR CHARAN Kaur Consulting Unavailable Unavailable Primary Care Provider MOMO Vaz Attending Unavailable ED KEEN Referring Unavailable Medications Current Medications MedicationDrug Class(es)DatesSig (Normalized)Sig (Original)atorvastatin 10 mg oral tablet (1 source)HMG-CoA Reductase Inhibitoratorvastatin (Lipitor) 10 MG tablet TAKE 1 TABLET BY MOUTH EVERY DAY ONCE DAILY Activeketorolac tromethamine 5 mg/ml ophthalmic solution (1 source)Nonsteroidal Anti-inflammatory Drug, Cyclooxygenase InhibitorStart: 04-17-2024 End: 98-74-2731ckwk 1 drop(s) into the eye(s) in the morningketorolac (Acular) 0.5 % ophthalmic solution Indications: Age-related nuclear cataract of both eyes Administer 1 drop into affected eye(s) in the morning and 1 drop before bedtime. 5 mL 1 04/17/2024 05/17/2024 ActivemetFORMIN hydrochloride 1000 mg oral tablet (1 source)Biguanidetake 1 tablet by mouth in the morningmetFORMIN (Glucophage) 1000 MG tablet Take 1,000 mg by mouth in the morning and 1,000 mg in the even ing. Take with meals. Activeofloxacin 3 mg/ml ophthalmic solution (1 source)Quinolone AntimicrobialStart: 04-17-2024 End: 39-37-5149xbqr 1 drop(s) into the eye(s) five times dailyofloxacin (Ocuflox) 0.3 % ophthalmic solution Indications: Age-related nuclear cataract of both eyes Administer 1 drop into the right eye 5 (five) times a day for 1 day Starting 1 day before surgery,continue after surgery as directed 5 mL 1 04/17/2024 04/18/2024 ActiveprednisoLONE acetate 10 mg/ml ophthalmic suspension (1 source)CorticosteroidStart: 04-17-2024 End: 69-44-9918wmtsrlrbZJYD acetate (Pred-Forte) 1 % ophthalmic suspension Indications: Age-related nuclear cataract of both eyes Administer 1 drop into both eyes in the morning and 1 drop at noon and 1 drop in theevening and 1 drop before bedtime. Do all this for 14 days. 5 mL 1 04/17/2024 05/01/2024 Active tamsulosin hydrochloride 0.4 mg oral capsule (1 source)alpha-Adrenergic BlockerStart: 93-74-1182gykv 1 capsule by mouth once dailytamsulosin (Flomax) 0.4 MG 24 hr capsule Take 0.4 mg by mouth Daily 02/13/2024 Active Problems Problem ClassificationProblemDateDocumented DateEpisodic/ChronicCataract (2 sources)Bilateral age-related nuclear cataracts; Translations: [Age-related nuclear cataract, bilateral]Onset: 80-86-637008008839-82-4637ObzbhuvYcbspcda mellitus without complication (1 source)Type 2 diabetes mellitus without complications; Translations: [TYPE 2 DM WITHOUT COMPLICATIONS]Onset: 70-66-7226QhrodbmMlufrggzp of lipid metabolism (4 sources)Mixed hyperlipidemia; Translations: [MIXED HYPERLIPIDEMIA]Onset: 82-26-2529BkwgfusAmeyqeqsg hypertension (1 source)Essential (primary) hypertension; Translations: [ESSENTIAL PRIMARY HYPERTENSION]Onset: 28-04-6089IowwoijByfsk screening for suspected conditions (not mental disorders or infectious disease) (1 source)Encounter for screening for malignant neoplasm of prostate; Translations: [ENC SCREEN MALIG NEOPLASM PROSTATE]Onset: 25-89-9925Qioofydd Results Test NameValueInterpretationReference RangeFacilityUS Eye+Orbit - bilateralon 39-51-7386Aafkgnwil: Cataract both eyes (OU) Testing Indication: Performed for preop measurements in the determination of an intraocular lens (IOL) for both eyes (OU) Test Reliability: Good quality both eyes (OU) Interpretation: Good measurements for intraocular lens (IOL) calculation purposes. Calculation made for both eyes (OU).[facility] Radiology Study observation (narrative)[facility] AUTO DIFFon 05-16-2022 BASO #0.1 103/ulNormal0.0-0.1The [facility] HospitalComment on above:Performed By: #### CBC #### [facility] [address] [address] [address] Arnaldo DejesusBasophils/100 WBC (Bld)0.9 %Normal0.2-2.0[facility] Comment on above:Performed By: #### CBC #### [facility] [address] [address] [address] Arnaldo Lawrence #0.2 103/ulNormal0.0-0.7The [facility] HospitalComment on above: Performed By: #### CBC #### [facility] [address] [place] [address] Dr. Arnaldo Gardnerosinophils/100 WBC (Bld)2.4 %Normal0.9-7.0[facility] Comment on above:Performed By: #### CBC #### [facility] [address] [place] [address] Dr. Arnaldo Gardnerrythrocyte distribution width (RBC) [Ratio]12.5 %Xlgxqi44.0-15.0 [facility] CenterComment on above:Performed By: #### CBC #### [facility] [address] [place] [address] Dr. Arnaldo DejesusHematocrit (Bld) [Volume fraction]40.9 %Critically low42.0-54.0 The [facility] HospitalComment on above:Performed By: #### CBC #### [facility] [address] [place] [address] Dr. Arnaldo DejesusHemoglobin (Bld) [Mass/Vol]14.4 g/eNXsejkl49.0-18.0The [facility] HospitalComment on above:Performed By: #### CBC #### [facility] [address] [place] [address] Dr. Arnaldo Campos #0.05 10e3/ulCritically high0.00-0.03[facility] Comment on above:Performed By: #### CBC #### [facility] [address] [address] [address] Arnaldo Campos %0.5 %Normal0.0-0.5[facility] on above: Performed By: #### CBC #### [facility] [address] [address] [address] Arnaldo Chris #2.0 103/ulNormal1.2-3.8The [facility] HospitalComment on above:Performed By: #### CBC #### [facility] [address] [place] [address] Dr. Arnaldo Vogthocytes/100 WBC (Bld)21.8 %Qxlisg63.5-60.0[facility] on above:Performed By: #### CBC #### [facility] [address] [place] [address] Dr. Arnaldo LaUAL DIFF REQNONormalThe [facility] HospitalComment on above: Performed By: #### CBC #### [facility] [address] [place] [address] Dr. Arnaldo Mejía (RBC) [Entitic mass]31.3 giQjswts02.9-34.0[facility] on above:Performed By: #### CBC #### [facility] [address] [place] [address] Dr. Arnaldo Mejía (RBC) [Mass/Vol]35.2 g/cMYchpbs61.9-35.2[facility] on above:Performed By: #### CBC #### [facility] [address] [place] [address] Dr. Arnaldo Mejía (RBC) [Entitic vol]88.9 nAEjtjgj35.0-94.0[facility] on above:Performed By: #### CBC #### [facility] [address] [place] [address] Dr. Arnaldo Gu #0.8 103/ulNormal0.3-0.8The [facility] HospitalComsparrow [facility] on above:Performed By: #### CBC #### [facility] [address] [address] [address] Arnaldo Orozcoocytes/100 WBC (Bld)8.4 %Normal1.7-12.0[facility] Comment on above:Performed By: #### CBC #### [facility] [address] [address] [address] Arnaldo HayesUT #6.2 103/ulNormal1.4-6.5The [facility] HospitalComment on above:Performed By: #### CBC #### [facility] [address] [place] [address] Dr. Arnaldo Hayesutrophils/100 WBC (Bld)66.0 %Lsgdau62.0-75.0The [facility] HospitalComment on above:Performed By: #### CBC #### [facility] [address] [place] [address] Dr. Arnaldo DejesusPlatelet mean volume (Bld) [Entitic vol]9.2 fLCritically low 9.5-13.5The [facility] HospitalComment on above:Performed By: #### CBC #### [facility] [address] [place] [address] Dr. Arnaldo DejesusPLT256 103/qsLlcgco658-207Zfp [facility] HospitalComment on above: Performed By: #### CBC #### [facility] [address] [place] [address] Dr. Arnaldo DejesusRBC4.60 106/ulCritically low4.70-6.10The [facility] HospitalComment on above:Performed By: #### CBC #### [facility] [address] [place] [address] Dr. Arnaldo DejesusWBC9.3 103/ulNormal4.0-11.0The [facility] HospitalComment on above: Performed By: #### CBC #### [facility] [address] [place] [address] Dr. Arnaldo DejesusLIPID PROFILEon 89-30-0868FVZO-HDL RATIO NORMSEE BELOWTrinity Health System Twin City Medical CenterComment on above:Result Comment: 3.3 - 4.4 LOW RISK 4.4 - 7.1 AVERAGE RISK 7.1 - 11.0 MODERATE RISK >11.0 HIGH RISKPerformed By: #### CMP, LIPID #### [facility] [address] [place] [address] Dr. Arnaldo DejesusCholesterol [Mass/Vol]125 mg/dLNormal<=200[facility] Comment on above:Performed By: #### CMP, LIPID #### [facility] [address] [place] [address] Dr. Arnaldo DejesusCholesterol in HDL [Mass/Vol]41 mg/rOFxpqfl69-76Rmk [facility] HospitalComment on above:Performed By: #### CMP, LIPID #### [facility] [address] [place] [address] Dr. Arnaldo DejesusCholesterol in LDL [Mass/Vol]50.4 mg/dLTrinity Health System Twin City Medical CenterComment on above:Performed By: #### CMP, LIPID #### [facility] [address] [place] [address] Dr. Arnaldo Abreuesterzahira.total/Cholesterol in HDL [Mass ratio]3.0 {ratio} NormalOhio State University Wexner Medical CenterComment on above:Performed By: #### CMP, LIPID #### [facility] [address] [place] [address] Dr. Arnaldo DejesusHDL NORMAL> or = 60 mg/dl - LOW CARDIOVASCULAR RISK <40 mg/dl - HIGH CARDIOVASCULAR RISKTrinity Health System Twin City Medical CenterComment on above:Performed By: #### CMP, LIPID #### [facility] [address] [place] [address] Dr. Arnaldo DejesusLDL CALC NORMALSEE BELOWTrinity Health System Twin City Medical CenterComment on above:Result Comment: <100 mg/dl OPTIMAL 100 - 129 mg/dl NEAR OR ABOVE OPTIMAL 130 - 159 mg/dl BORDERLINE HIGH 160 - 189 mg/dl HIGH >190 mg/dl VERY HIGH Performed By: #### CMP, LIPID #### [facility] [address] [place] [address] Dr. Arnaldo DejesusTriglyceride [Mass/Vol]168 mg/dLCritically high<=150The [facility] HospitalComment on above:Performed By: #### CMP, LIPID #### [facility] [address] [place] [address] Dr. Arnaldo ValerioLDL CALC33.6 mg/dLNormalThe [facility] HospitalComment on above: Performed By: #### CMP, LIPID #### [facility] [address] [address] [address] Arnaldo DejesusPROF 14(COMP METB)on 58-34-2350Pajucoo [Mass/Vol]4.1 g/dLNormal 3.4-5.0The [facility] HospitalComment on above:Performed By: #### CMP, LIPID #### [facility] [address] [place] [address] Dr. Arnaldo DejesusAlbumin/Globulin [Mass ratio]1.1 {ratio}NormalThe [facility] HospitalComment on above:Performed By: #### CMP, LIPID #### [facility] [address] [place] [address] Dr. Arnaldo Michael [Catalytic activity/Vol]84 U/SQnlxpg60-246Ibx [facility] HospitalComment on above:Performed By: #### CMP, LIPID #### [facility] [address] [place] [address] Dr. Arnaldo Oleary [Catalytic activity/Vol]30 U/TCdunwd19-57Jic [facility] HospitalComment on above:Performed By: #### CMP, LIPID #### [facility] [address] [place] [address] Dr. Arnaldo Ruiz gap [Moles/Vol]12.1 mmol/LNormalThe [facility] Comment on above:Performed By: #### CMP, LIPID #### [facility] [address] [place] [address] Dr. Arnaldo Miller [Catalytic activity/Vol]20 U/EJkvmou27-78Ttd [facility] HospitalComment on above:Performed By: #### CMP, LIPID #### [facility] [address] [place] [address] Dr. Arnaldo DejesusBilirubin [Mass/Vol]0.7 mg/dLNormal0.2-1.0[facility] Comment on above:Performed By: #### CMP, LIPID #### [facility] [address] [place] [address] Dr. Arnaldo DejesusCalcium [Mass/Vol]8.8 mg/dLNormal8.5-10.1[facility] Comment on above:Performed By: #### CMP, LIPID #### [facility] [address] [place] [address] Dr. Arnaldo DejesusChloride [Moles/Vol]100 mmol/NDoaezu64-776Fvd [facility] Comment on above:Performed By: #### CMP, LIPID #### [facility] [address] [place] [address] Dr. Arnaldo DejesusCO2 [Moles/Vol]28.7 mmol/SWgpayl90.0-32.0[facility] Comment on above:Performed By: #### CMP, LIPID #### [facility] [address] [place] [address] Dr. Arnaldo DejesusCreatinine [Mass/Vol]1.13 mg/dLNormal0.70-1.30The [facility] HospitalComment on above:Performed By: #### CMP, LIPID #### [facility] [address] [place] [address] Dr. Arnaldo GardnerGFR-AF [place]OOK ISLANDER>60Normal>=60The [facility] HospitalComment on above:Performed By: #### CMP, LIPID #### [facility] [address] [place] [address] Dr. Arnaldo GardnerGFR-NON AF [place] ISLANDER>60Normal>=60The [facility] HospitalComment on above:Performed By: #### CMP, LIPID #### [facility] [address] [place] [address] Dr. Arnaldo DejesusGlobulin (S) [Mass/Vol]3.6 g/dLNormalThe [facility] HospitalComment on above:Performed By: #### CMP, LIPID #### [facility] [address] [place] [address] Dr. Arnaldo DejesusGlucose [Mass/Vol]123 mg/dLCritically docu82-373Bbd [facility] HospitalComment on above:Performed By: #### CMP, LIPID #### [facility] [address] [address] [address] Arnaldo DejesusPotassium [Moles/Vol]3.8 mmol/LNormal3.5-5.1The [facility] Comment on above:Performed By: #### CMP, LIPID #### [facility] [address] [address] [address] Arnaldo DejesusProtein [Mass/Vol]7.7 g/dLNormal6.4-8.2The [facility] Comment on above:Performed By: #### CMP, LIPID #### [facility] [address] [place] [address] Dr. Arnaldo DejesusSodium [Moles/Vol]137 mmol/LCaqouv222-728Ojf [facility] Comment on above:Performed By: #### CMP, LIPID #### [facility] [address] [address] [address] Arnaldo DejesusUrea nitrogen [Mass/Vol]17.0 mg/dLNormal7.0-18.0The [facility] HospitalComment on above:Performed By: #### CMP, LIPID #### [facility] [address] [place] [address] Dr. Arnaldo Olivares nitrogen/Creatinine [Mass ratio]15.0 mg/mgNormalThe [facility] HospitalComment on above:Performed By: #### CMP, LIPID #### [facility] [address] [place] [address] Dr. Arnaldo Dejesus Encounters Encounter DateEncounter TypeCare ProviderFacilityStart: 04-17-2024 End: 93-28-7748Hgqfpsdanielle Shaw DO Work Phone: noMS NB OPHTStart: 04-17-2024 End: 31-61-3893Elbveocari Shaw DO Work Phone: noms MARITA OPHTStart: 04-17-2024 End: 21-95-5953ttygubemwwDDIAKCZA Ryan Schwarz AvailableStart: 05-16-2022 End: 20-99-2542cdjsncwohfEF CHARAN A HERBOOKERFacility:H1 Procedures DateProcedureProcedure DetailPerforming ClinicianStart: 78-44-3452Oxb bmtry prtl coher intrfrmtry io lens pwr calMomo Shaw DO Work Phone: Start: 04-17-2024 End: 28-19-4395Wmlqn medical xm&eval compre new pt 1/> vstAge-related nuclear cataract of both eyesMomo Shaw DO Work Phone: comment on above:Age-related nuclear cataract of both eyes (Primary Dx)Start: 06-78-3133YZM screeningDR CHARAN VALDEZComment on above:Performed By: #### PSASC #### [facility] [address] [place] [address] Dr. Arnaldo Dejesus Plan of Treatment DateCare ActivityDetailAuthorStart: 04-17-2024 End: 44-82-1641Ipdkzqw encounter knhssvhvi44/06/2024 2:00 PM EST Office Visit [facility] [address] [place] [address] Momo Shaw, DO [address] [place] [address] ArrivedNOMS NB OPHTComment on above:ArrivedStart: 11-04-3649Txxzfocld vaccinationInfluenza Vaccine (#1)[facility]OMS HealthcareStart: 06-37-9548Mlyssdioi for malignant neoplasm of colonNOMS Healthcare Immunizations Immunization DateImmunizationNotesCare OaywmntkBofelxut72-76-2727ziljnbnsy virus vaccine, unspecified formulationMomo Shaw DO Work Phone: [facility] Payers DatePayer CategoryPayerPolicy [id number] Health InsuranceAETNA [id number] Health [id number] 2017[place] [id number] [id number] [id number] [id number] Social History DateTypeDetailFacilityTobacco smoking status NHISTobacco smoking consumption unknownNOMS HealthcareStart: 53-50-9454Kyv assigned at birthNot on fileNOMS HealthcareStart: 30-69-6454Mkyuzv identityNot on fileNOMN HealthcareStart: 63-70-0556Iisjxmj smoking status NHISEx-smokerNOMS HealthcareHistory of tobacco useCurrent smokerNOMS HealthcareHistory of tobacco useCigarette SmokerNOMS HealthcareStart: 45-36-2501Amztjmf of Social functionNOMS Healthcare History of Present illness Narrative 04-17-2024 Note Date & BxwaSdeoEzwipsta03-94-8813 History of Present illness Narrative* Momo Ryan Shaw, DO - 04/17/2024 2:00 PM EST Images from the original note were not [...] (CE) eval for pt referred by Dr Keen. Pt states vision is extremely blurry without [...] into the right eye 5 (five) times aday for 1 day Starting 1 day before surgery, continue after surgery as directed 5 mL 1 prednisoLONE acetate (Pred-Forte) 1 % ophthalmic suspension Administer 1 drop into both eyes in themorning and 1 drop at noon and 1 [...] @ 2:24 PM Additional Tests Keratometry K1 Harbinger K2 Harbinger Right 43.25 89 44.25 179 Left 44 [...] Normal Normal Refraction Manifest Refraction Sphere Cylinder Harbinger Right +1.25 -1.00 097 Left -0.75 -1.50 045 Final Rx Sphere Cylinder Harbinger Dist [facility] Right +0.75 -1.00 098 20/40 [...] different lens options were explained including the ghz-ig-hfnumx fees for any upgrades. Intraocular lens (IOL) [...] of care will be shared with Dr. Keen. Cataract Surgery for OS will take place - 05/16 and OD - 05/27. documented in this encounterNOMN Healthcare Evaluation note Note Date & TypeNoteFacilityEvaluation note* Diagnosis Age-related nuclear cataract of both eyes- [...] and content) DATE CREATED AUTHOR 05/21/2022 [facility] DATE CREATED AUTHOR AUTHOR'S ORGANIZ ATION 04/19/2024 [facility] EPIC Reason for Visit (unrecogniz ed section and content) ReasonCommentsCataract FOR RECORDS PERTAINING TO PATIENTS WHO ARE [...] BE BASED ON THE PRIMARY CLINICAL RECORDS. [employer] provides no warranty or guarantee of the accuracy or completeness of information in this document.
[2025-05-20 13:13] LABS: Hematocrit 41.1 % (42.0-54.0); Hemoglobin 14.4 g/dL (14.0-18.0); Immature Granulocytes Abs Auto 0.05 10^3/uL (0.00-0.03); Immature Granulocytes Pct Auto 0.6 % (0.0-0.5); Lymphocytes Absolute Auto 1.6 10^3/uL (1.2-3.8); Mean Corpuscular HGB Conc 35.0 g/dL (29.9-35.2); Mean Corpuscular Hemoglobin 31.7 pg (25.9-34.0); Mean Corpuscular Volume 90.5 fL (80.0-94.0); Platelet Count 265 10^3/uL (150-450); Red Blood Count 4.54 10^6/uL (4.70-6.10); White Blood Count 8.3 10^3/uL (4.0-11.0)
[2025-05-20 13:54] LABS: Alanine Aminotransferase 39 U/L (16-63); Albumin Globulin Ratio 1.2; Albumin Level 4.2 g/dL (3.4-5.0); Alkaline Phosphatase 82 U/L (46-116); Anion Gap 11.0; Aspartate Amino Transferase 23 U/L (15-37); Blood Urea Nitrogen 16.0 mg/dL (7.0-18.0); Calcium 9.0 mg/dL (8.5-10.1); Carbon Dioxide 29.0 mmol/L (21.0-32.0); Chloride 101 mmol/L (98-107); Cholesterol 153 mg/dL (<=200); Estimated GFR (African America >60 (>=60 mL/min/1.73m^2); Estimated GFR (Non-African Ame >60 (>=60 mL/min/1.73m^2); Globulin 3.5 g/dL; Glucose 125 mg/dL (74-106); HDL Cholesterol 38 mg/dL (40-60); Potassium 4.0 mmol/L (3.5-5.1); Sodium 137 mmol/L (136-145); Total Protein 7.7 g/dL (6.4-8.2); Triglycerides 236 mg/dL (<=150); VLDL CHOLESTEROL 47.2 mg/dL
== END 2025-05-20 12:18 | disposition home or self-care (01) ==
LOC: LAB 12:23
PROVIDERS: PCP Family Medicine; Visit Provider Family Medicine
DX: E11.9 Type 2 diabetes mellitus without complications (principal); Z12.5 Encounter for screening for malignant neoplasm of prostate
CPT/HCPCS: 36415; 80053; 80061; 82043; 82570; 83036; 85025; G0103